=== PATIENT | female | born 1975 | race Hispanic/Latino ===

== ENCOUNTER 2018-02-01 09:19 | Inpatient (IN) | payer MEDICAID ==
[2018-02-01 09:19] VITALS: BMI 17.5
--- NOTE | 2018-02-01 10:01 | C.PDOC ---
History Of Present Illness <JarodEvelyne L - Last Filed: 02/01/18 14:00> <Marv Lazcano - Last Filed: 02/03/18 14:16> 42 y/o female presents to ED requesting detox from heroin. Patient reports last used was last night and currently denies ETOH use, signs of withdrawal, SI/HI or any other complaints at this time. (Evelyne Salazar) History Per: Patient History/Exam Limitations: no limitations Onset/Duration Of Symptoms: Days Current Symptoms Are (Timing): Still Present Suicide/Self Injury Attempted (Context): None <MartinJarodEvelnye L - Last Filed: 02/01/18 14:00> <Marv Lazcano - Last Filed: 02/03/18 14:16> Time Seen by Provider: 02/01/18 09:37 Chief Complaint (Nursing): Substance Abuse Past Medical History Reviewed: Historical Data, Nursing Documentation, Vital Signs - Medical History PMH: Anxiety, Depression Surgical History: No Surg Hx Family History: States: No Known Family Hx - Social History Hx Alcohol Use: No Hx Substance Use: Yes - Immunization History Hx Tetanus Toxoid Vaccination: No Hx Influenza Vaccination: No Hx Pneumococcal Vaccination: No <JarodEvelyne L - Last Filed: 02/01/18 14:00> Vital Signs: Last Vital Signs Temp 98.1 F 02/03/18 13:28 Pulse 60 02/03/18 13:28 Resp 18 02/03/18 13:28 BP 107/67 02/03/18 13:28 Pulse Ox 99 02/03/18 13:28 - [facility] Procedures INJECT/INFUSE NEC (05/08/14) Review Of Systems Constitutional: Negative for: Fever, Chills Cardiovascular: Negative for: Chest Pain Respiratory: Negative for: Shortness of Breath Gastrointestinal: Negative for: Nausea, Vomiting Skin: Negative for: Rash <MartinJarodEvelyne L - Last Filed: 02/01/18 14:00> Physical Exam - Physical Exam Appears: Non-toxic, No Acute Distress Skin: Warm, Dry, No Rash Head: Atraumatic, Normacephalic Eye(s): bilateral: PERRL, EOMI Oral Mucosa: Moist Neck: Normal ROM, Supple Cardiovascular: Rhythm Regular Respiratory: No Rales, No Rhonchi, No Wheezing Gastrointestinal/Abdominal: Soft, No Tenderness, No Guarding, No Rebound Neurological/Psych: Oriented x3, Normal Speech, Normal Cognition, Other (No tremors) <MartinJarodEvelyne L - Last Filed: 02/01/18 14:00> ED Course And Treatment - Laboratory Results Result Diagrams: 02/01/18 10:24 02/01/18 10:24 O2 Sat by Pulse Oximetry: 98 (RA) Pulse Ox Interpretation: Normal <JarodEvelyne L - Last Filed: 02/01/18 14:00> - Laboratory Results Result Diagrams: 02/01/18 10:24 02/01/18 10:24 <Marv Lazcano - Last Filed: 02/03/18 14:16> Medical Decision Making <MartinEvelyne L - Last Filed: 02/01/18 14:00> <Marv Lazcano - Last Filed: 02/03/18 14:16> Medical Decision Making: Patient requesting detox from heroin. Labs ordered for medical clearance Labs reviewed with no acute findings. In my clinical judgment patient is medically cleared and stable for admission. PES contacted for evaluation. As per KASSANDRA Falcon patient is to be admitted under Dr Witt service for detox (Evelyne Salazar) Disposition - Disposition Disposition Time: 10:53 - POA Present On Arrival: None <Evelyne Salazar - Last Filed: 02/01/18 14:00> <Marv Lazcano - Last Filed: 02/03/18 14:16> - Disposition Disposition: HOSPITALIZED Condition: GOOD - Clinical Impression Clinical Impression: Heroin use disorder, severe - PA / CORPORATE COUNSEL / Resident Statement / has reviewed & agrees with the documentation as recorded. - Scribe Statement The provider has reviewed the documentation as recorded by the Scribe <Evelyne Salazar - Last Filed: 02/01/18 14:00> - PA / CORPORATE COUNSEL / Resident Statement / has reviewed & agrees with the documentation as recorded. <Marv Lazcano - Last Filed: 02/03/18 14:16> - Scribe Statement Caio Falk All medical record entries made by the Scribe were at my direction and personally dictated by me. I have reviewed the chart and agree that the record accurately reflects my personal performance of the history, physical exam, medical decision making, and the department course for this patient. I have also personally directed, reviewed, and agree with the discharge instructions and disposition. (Evelyne Salazar) Decision To Admit - Pt Status Changed To: Hospital Disposition Of: Inpatient - Admit Certification Admit to Inpatient:: After my assessment, the patient will require hospitalization for at least two midnights. This is because of the severity of symptoms shown, intensity of services needed, and/or the medical risk in this patient being treated as an outpatient. - InPatient: Physician Admission Certification: I certify that this patient requires 2 or more midnights of care for the following reason:: patient needs inpatient detox for heroin use - . Bed Request Type: Detox Admitting Physician: Halley Witt <Evelyne Salazar - Last Filed: 02/01/18 14:00> <Marv Lazcano - Last Filed: 02/03/18 14:16> - . Patient Diagnosis: Heroin use disorder, severe
[2018-02-01 10:28] LABS: BASO % 0.9 % (0.0-2.0); EOS # 0.1 K/uL (0.0-0.7); HEMOGLOBIN 13.2 g/dL (11.0-16.0); LYMPH # 0.7 K/uL (1.0-4.3); LYMPH % 18.2 % (20.0-40.0); MEAN CELL VOLUME 92.8 fL (81.0-99.0); MEAN CORPUSCULAR HGB CONC 34.4 g/dL (33.0-37.0); MEAN PLATELET VOLUME 8.7 fL (7.2-11.7); MONO # 0.3 K/uL (0.0-0.8); MONO % 8.7 % (0.0-10.0); NEUT # 2.6 K/uL (1.8-7.0); NEUT % 70.2 % (50.0-75.0); NRBC % 0.1 % (0.0-2.0); RBC 4.13 Mil/uL (3.80-5.20); RED CELL DISTRIBUTION WIDTH 13.6 % (11.5-14.5); WHITE BLOOD COUNT 3.8 K/uL (4.8-10.8)
[2018-02-01 10:42] LABS: HCG,QUALITATIVE URINE NEGATIVE (NEGATIVE)
[2018-02-01 10:47] LABS: SQUAMOUS EPITHIAL 3 /hpf (0-5); URINE BACTERIA RARE (<OCC); URINE BILIRUBIN NEGATIVE (NEGATIVE); URINE BLOOD NEGATIVE (NEGATIVE); URINE CLARITY Clear (Clear); URINE COLOR Yellow (YELLOW); URINE GLUCOSE (UA) NORMAL (Normal); URINE LEUKOCYTE ESTERASE TRACE Leu/uL (Negative); URINE PROTEIN NEGATIVE (NEGATIVE); URINE UROBILINOGEN NORMAL mg/dL (0.2-1.0)
[2018-02-01 10:49] LABS: ALB/GLOB RATIO 1.1 (1.0-2.1); ALBUMIN 3.6 g/dL (3.5-5.0); ALT/SGPT 26 U/L (9-52); AST/SGOT 24 U/L (14-36); BLOOD UREA NITROGEN 8 mg/dL (7-17); CALCIUM 8.8 mg/dl (8.6-10.4); GFR AFRICAN-AMERICAN > 60; GFR NON-AFRICAN AMERICAN > 60
[2018-02-01 11:34] LABS: BARBITURATES, UR NEGATIVE (NEGATIVE); PHENCYCLIDINE, UR NEGATIVE (NEGATIVE)
[2018-02-01 11:36] LABS: BENZODIAZEPINES, UR POSITIVE (NEGATIVE); OPIATES, UR POSITIVE (NEGATIVE)
--- NOTE | 2018-02-01 12:09 | PCM.BM ---
<Mariana Amaro - Last Filed: 02/01/18 12:07> Treatment Plan Problems - Problems identified on initial assessmt Potential for opioid withdrawal Date Initiated: 02/01/18 Assessment reference: NA Status: Active Potential for benzodiazepine withdrawal Date Initiated: 02/01/18 Assessment reference: NA Status: Active Treatment assets and liabiliti Patient Assests: cooperative, educated, self-reliant, ADL independent Patient Liabilities: financial problems, poor support system, relationship conflicts, substance abuse - Milieu Protocol Maintain good personal hygiene: every shift Encourage regular showers, every shift Remind patient to perform daily oral care, every shift Assist patient to perform ADL's Maintain personal safety: every shift Educate patient to report safety concerns to staff, every shift Monitor environment for contraband/sharps Medication safety: Monitor for expected outcome, potential side effects: every shift, Assess barriers to learning: every shift, Assess readiness for medication education: every shift <Halley Witt - Last Filed: 02/03/18 08:52> - Diagnosis (1) Opioid use disorder, severe, dependence Status: Acute Interventions: 02/03/18 08:52 * Assess 7x/week regarding severity of withdrawal * Educate regarding risks, benefits, side effects and alternatives of medications * Use Motivational Interviewing for abstinence * Use CBT for relapse prevention * Medication management for withdrawal symptoms * Encourage medication assisted treatment *
--- NOTE | 2018-02-01 13:00 | PCM.PSYCH ---
Initial Psychiatric Evaluation - Initial Psychiatric Evaluation Type of Admission: Voluntary Legal Status: Capacity Chief Complaint (in patient's own words): "I need detox" History of Present Illness and Precipitating Events: The patient is seen, chart reviewed and case discussed. This is a 42-year-old female, homeless and unemployed, she is but for 5 years, however she was living with her ex- up until last weekend when he left for [facility]. The patient is also from [facility] and came here 15 years ago. She doesn't have a child. The patient is here for heroin detox; using 20 bags intranasally for the past 10 years. She had one detox in the past but never been to rehabilitation or or used MAT. She is also using crack cocaine the last 2 or 3 weeks but denies alcohol, cannabis and all other drugs. She is positive for benzos but she denies using, however she was given Xanax for anxiety but she says she stopped a month ago. She says she couldn't stop on her own and kept on relapsing. Past psych history: Depression and anxiety. No admissions and no suicide attempts Medical history: Denies. She takes insulin for tooth abscess Family psych history: Uncle had substance use and committed suicide when patient was a child Current Medications: Active Medications Generic Name Dose Route Start Last Admin Trade Name Freq PRN Reason Stop Dose Admin Amoxicillin/Clavulanate Potassium 1 tab 02/01/18 19:00 Augmentin 500 Mg-125 Mg Tab PO 02/06/18 19:01 Q12H CONCEPCION Protocol Clonidine HCl 0.1 mg 02/01/18 12:50 Catapres PO Q8 PRN COWS Score More or Equal to 5 Escitalopram Oxalate 5 mg 02/01/18 13:00 Lexapro PO DAILY CONCEPCION Gabapentin 100 mg 02/01/18 14:00 Neurontin PO TID CONCEPCION Hydroxyzine HCl 25 mg 02/01/18 12:53 Atarax PO Q4H PRN Anxiety Ibuprofen 600 mg 02/01/18 12:53 Motrin Tab PO Q6H PRN Pain, moderate (4-7) Loperamide HCl 2 mg 02/01/18 12:50 Imodium PO Q8 PRN Diarrhea Methadone HCl 25 mg 02/02/18 13:00 Methadone PO 02/02/18 13:01 ONCE ONE Ondansetron HCl 4 mg 02/01/18 12:50 Zofran Tab PO Q8 PRN Nausea/Vomiting Past Psychiatric History - Past Psychiatric History Previous Treatment History: None Pertinent Medical Hx (Current Medical&Sleep Prob, Allergies): Allergies Allergy/AdvReac Type Severity Reaction Status Date / Time No Known Allergies Allergy Verified 02/01/18 09:25 Ibuprofen [Motrin] 600 mg PO Q6 02/01/18 Penicillin VK [Penicillin VK Tab] 500 mg PO TID 02/01/18 Review of Systems - Neurological Neurological: UNREMARKABLE - Psychiatric Psychiatric: Abnormal Sleep Pattern, Anhedonia, Anxiety, Change in Appetite, Depression, Difficulty Concentrating. absent: Hallucinations, Homicidal Ideation, Hopelessness, Paranoia, Suicidal Ideation Mental Status Examination - Personal Presentation Personal Presentation: Looks stated age - Affect Affect: Broad - Motor Activity Motor Activity: Calm - Reliability in Providing Information Reliability in Providing Information: Good - Speech Speech: Organized - Mood Mood: Depressed, Anxious - Formal Thought Process Formal Thought Process: No Impairment - Cognitive Functions Orientation: Person, Place, Situation, Time Sensorium: Alert Attention/Concentration: Attentive Estimate of Intelligence: Average Judgement: Intact, as evidence by: Insight regarding need for hospitalization Memory: Recent intact, as evidence by: Ability to recall events of the day, Remote intact, as evidenced by: Abilit to recall sig. life events - Risk Risk: Withdrawal, Diminished functioning - Strength & Assets Inventory Strength & Assets Inventory: Cooperative - Limitations Limitations: Living alone DSM 5 DX - DSM 5 DSM 5 Diagnosis: Opioid withdrawal Opioid use disorder, severe Cocaine use disorder, severe Major depressive disorder, moderate Generalized anxiety disorder - Recommended/Plan of Treatment Treatment Recommendations and Plan of Treatment: Taper with methadone Gabapentin for augmentation Lexapro for REZA and depression CBT and supportive therapy for REZA and depression As needed medications All risks, benefits and alternatives of the meds discussed, and the pt agreed and understood. Attend groups and activities Supportive therapy and psychoeducation for substance use [place] for abstinence CBT for relapse prevention Encourage MAT Refer to rehab or IOP, and self-help groups 34 min Projected ELOS: 5-6 days Prognosis: Good with treated - Smoking Cessation Smoking Cessation Initiated: No Reason for not providing: Nonsmoker
[2018-02-01] MEDS: Amoxicillin-Clav 500-125 mg Tab PO SCH (19:12)
[2018-02-02] MEDS: Amoxicillin-Clav 500-125 mg Tab PO SCH ×2 (08:27→19:09)
--- NOTE | 2018-02-02 16:48 | PCM.PYCHPN ---
Psychiatric Progress Note - Psychiatric Progress Note Patient seen today, length of contact: 16 min Patient Chief Complaint: "I'm not well" Problems Identified/Issues Discussed: The pt is seen, chart reviewed, case discussed with staff. The pt is compliant with medications and reports no side-effects. Symptoms are improving but needs more time to stabilize. After care discussed, support and psychoeducation given. Medication Change: Yes (detox changes daily) Medical Record Reviewed: Yes Mental Status Examination - Cognitive Function Orientation: Person, Place, Situation, Time Memory: Intact Attention: Poor Concentration: Poor Association: WNL Fund of Knowledge: WNL - Mood Mood: Depressed, Anxious - Affect Affect: Broad - Speech Speech: Appropriate - Formal Thought Process Formal Thought Process: No Impairment - Suicidal Ideation Suicidal Ideation: No - Homicidal Ideation Homicidal Ideation: No Goal/Treatment Plan - Goal/Treatment Plan Need for Continued Stay: Discharge may exacerbated symptoms, Severe functional impairment Progress Toward Problem(s) and Goals/Treatment Plan: Taper with methadone Gabapentin for augmentation Lexapro for REZA and depression CBT and supportive therapy for REZA and depression As needed medications All risks, benefits and alternatives of the meds discussed, and the pt agreed and understood. Attend groups and activities Supportive therapy and psychoeducation for substance use [place] for abstinence CBT for relapse prevention Encourage MAT Refer to rehab or IOP, and self-help groups Estimated Date of D/C: 02/07/18
[2018-02-03] MEDS: Amoxicillin-Clav 500-125 mg Tab PO SCH ×2 (08:05→18:10)
--- NOTE | 2018-02-03 12:03 | PCM.PYCHPN ---
Psychiatric Progress Note - Psychiatric Progress Note Patient seen today, length of contact: 17 min Patient Chief Complaint: "I regret starting methadone" Problems Identified/Issues Discussed: The pt is seen, chart reviewed, case discussed with staff. Support and psychoeducation given, CBT and [place] used briefly No new symptoms reported, improving slowly and needs more time She thinks subutex would have helped ore bc she is "still withdrawing" and it shows, she is somewhat sick Detox is extended No SEs from medications, risks discussed. After care discussed - rehab after detox Medication Change: Yes (detox changes daily) Medical Record Reviewed: Yes Mental Status Examination - Cognitive Function Orientation: Person, Place, Situation, Time Memory: Intact Attention: Poor Concentration: Poor Association: WNL Fund of Knowledge: WNL - Mood Mood: Depressed, Anxious - Affect Affect: Broad - Speech Speech: Appropriate - Formal Thought Process Formal Thought Process: No Impairment - Suicidal Ideation Suicidal Ideation: No - Homicidal Ideation Homicidal Ideation: No Goal/Treatment Plan - Goal/Treatment Plan Need for Continued Stay: Discharge may exacerbated symptoms, Severe functional impairment Progress Toward Problem(s) and Goals/Treatment Plan: Taper with methadone Gabapentin for augmentation Lexapro for REZA and depression, dose increased CBT and supportive therapy for REZA and depression As needed medications All risks, benefits and alternatives of the meds discussed, and the pt agreed and understood. Attend groups and activities Supportive therapy and psychoeducation for substance use [place] for abstinence CBT for relapse prevention Encourage MAT Refer to rehab or IOP, and self-help groups Estimated Date of D/C: 02/07/18
[2018-02-04] MEDS: Amoxicillin-Clav 500-125 mg Tab PO SCH ×2 (07:19→18:06)
--- NOTE | 2018-02-04 10:49 | RAD ---
HISTORY: Substance abuse. Rehab clearance. COMPARISON: No prior. TECHNIQUE: Chest PA and lateral FINDINGS: LUNGS: No active pulmonary disease. PLEURA: No significant pleural effusion identified. No pneumothorax apparent. CARDIOVASCULAR: Normal. OSSEOUS STRUCTURES: No significant abnormalities. VISUALIZED UPPER ABDOMEN: Normal. OTHER FINDINGS: None. IMPRESSION: No active disease.
--- NOTE | 2018-02-04 13:47 | PCM.PYCHPN ---
Psychiatric Progress Note - Psychiatric Progress Note Patient seen today, length of contact: 16 min Patient Chief Complaint: "I couldn't sleep" Problems Identified/Issues Discussed: The pt is seen, chart reviewed, case discussed with staff. The pt is compliant with medications and reports no side-effects. Symptoms are improving but needs more time to stabilize. After care discussed, support and psychoeducation given. Seroquel added for insomnia Medication Change: Yes (detox changes daily) Medical Record Reviewed: Yes Mental Status Examination - Cognitive Function Orientation: Person, Place, Situation, Time Memory: Intact Attention: Poor Concentration: Poor Association: WNL Fund of Knowledge: WNL - Mood Mood: Depressed, Anxious - Affect Affect: Broad - Speech Speech: Appropriate - Formal Thought Process Formal Thought Process: No Impairment - Suicidal Ideation Suicidal Ideation: No - Homicidal Ideation Homicidal Ideation: No Goal/Treatment Plan - Goal/Treatment Plan Need for Continued Stay: Discharge may exacerbated symptoms, Severe functional impairment Progress Toward Problem(s) and Goals/Treatment Plan: Taper with methadone Gabapentin for augmentation Lexapro for REZA and depression, dose increased CBT and supportive therapy for REZA and depression As needed medications All risks, benefits and alternatives of the meds discussed, and the pt agreed and understood. Attend groups and activities Supportive therapy and psychoeducation for substance use [place] for abstinence CBT for relapse prevention Encourage MAT Refer to rehab or IOP, and self-help groups Estimated Date of D/C: 02/07/18
[2018-02-05] MEDS: Amoxicillin-Clav 500-125 mg Tab PO SCH ×2 (06:44→19:00)
--- NOTE | 2018-02-05 10:48 | PCM.PYCHPN ---
Psychiatric Progress Note - Psychiatric Progress Note Patient seen today, length of contact: 16 min Patient Chief Complaint: "I have withdrawal symptoms" Problems Identified/Issues Discussed: The pt is seen, chart reviewed, case discussed with staff. The pt is compliant with medications and reports no side-effects. Symptoms are improving but needs more time to stabilize. After care discussed, support and psychoeducation given. DSM 5 Symptoms Update: Opioid dependence, severe, Opioid withdrawal symptoms Medication Change: Yes (detox changes daily) Medical Record Reviewed: Yes Mental Status Examination - Cognitive Function Orientation: Person, Place, Situation, Time Memory: Intact Attention: Poor Concentration: Poor Association: WNL Fund of Knowledge: WN Decription of patient's judgement and insights: fair/fair - Mood Mood: Depressed, Anxious - Affect Affect: Broad - Speech Speech: Appropriate - Formal Thought Process Formal Thought Process: No Impairment Psychotic Thoughts and Behaviors: denied - Suicidal Ideation Suicidal Ideation: No Plan: denied - Homicidal Ideation Homicidal Ideation: No Plan: denied Goal/Treatment Plan - Goal/Treatment Plan Need for Continued Stay: Discharge may exacerbated symptoms, Severe functional impairment Progress Toward Problem(s) and Goals/Treatment Plan: Continue current management and medications. Patient educated about risks, benefits, side effects & alternatives of meds. Pt verbalized understanding & agreed with the above. Therapy in milieu. Estimated Date of D/C: 02/07/18
[2018-02-06] MEDS: Amoxicillin-Clav 500-125 mg Tab PO SCH ×2 (06:38→19:00)
--- NOTE | 2018-02-06 10:46 | PCM.PYCHPN ---
Psychiatric Progress Note - Psychiatric Progress Note Patient seen today, length of contact: 16 min Patient Chief Complaint: "I'm feeling better" Problems Identified/Issues Discussed: The pt is seen, chart reviewed, case discussed with staff. The pt reported that in the morning she has had withdrawal symptoms but which subsided after taking medication. The pt is compliant with medications and reports no side-effects. Symptoms are improving but needs more time to stabilize. After care discussed, support and psychoeducation given. DSM 5 Symptoms Update: Opioid dependence, severe, withdrawal symptoms. Medication Change: Yes (detox changes daily) Medical Record Reviewed: Yes Mental Status Examination - Cognitive Function Orientation: Person, Place, Situation, Time Memory: Intact Attention: WNL Concentration: WNL Association: WN Fund of Knowledge: [facility] Decription of patient's judgement and insights: fair/good - Mood Mood: Anxious - Affect Affect: Constricted - Speech Speech: Appropriate - Formal Thought Process Formal Thought Process: No Impairment Psychotic Thoughts and Behaviors: denied - Suicidal Ideation Suicidal Ideation: No Plan: denied - Homicidal Ideation Homicidal Ideation: No Plan: denied Goal/Treatment Plan - Goal/Treatment Plan Need for Continued Stay: Discharge may exacerbated symptoms, Severe functional impairment Progress Toward Problem(s) and Goals/Treatment Plan: Continue current management and medications. Patient educated about risks, benefits, side effects & alternatives of meds. Pt verbalized understanding & agreed with the above. Therapy in milieu. Estimated Date of D/C: 02/07/18 - Smoking Cessation Smoking Cessation Initiated: Yes
[2018-02-07 06:30] VITALS: O2SAT 98
[2018-02-07 08:26] VITALS: BP 103/74; PULSE 86; RESP 18; TEMP 98.2
--- NOTE | 2018-02-07 08:38 | PCM.PYCHDC ---
Mental Status Examination - Mental Status Examination Orientation: Person, Place, Situation, Time Memory: Intact Mood: Anxious Affect: Constricted Speech: Appropriate Attention: WNL Concentration: WNL Association: WNL Fund of Knowledge: WNL Formal Thought Process: No Impairment Suicidal Ideation: No Current Homicidal Ideation?: No Discharge Summary - Discharge Note Reason for Hospitalization: opioid detox Consultations:: List each consultation separately and include: 1. Reason for request. 2. Findings. 3. Follow-up Summary of Hospital Course include:: 1. Description of specific treatment plan utilized for patients during their course of treatmen. 2. Summarize the time- course for resolution of acute symptoms and/or regressed behaviors. 3. Describe issues identified and worked on during hospitalization. 4. Describe medication utilized. 5. Describe medical problems identified and treated. 6. Reassessment of suicide risk Summary of Hospital Course: The patient is seen, chart reviewed and case discussed. On admission: This is a 42-year-old female, homeless and unemployed, she is but for 5 years, however she was living with her ex- up until last weekend when he left for [facility]. The patient is also from [facility] and came here 15 years ago. She doesn't have a child. The patient is here for heroin detox; using 20 bags intranasally for the past 10 years. She had one detox in the past but never been to rehabilitation or or used MAT. She is also using crack cocaine the last 2 or 3 weeks but denies alcohol, cannabis and all other drugs. She is positive for benzos but she denies using, however she was given Xanax for anxiety but she says she stopped a month ago. She says she couldn't stop on her own and kept on relapsing. Past psych history: Depression and anxiety. No admissions and no suicide attempts Medical history: Denies. She takes insulin for tooth abscess Family psych history: Uncle had substance use and committed suicide when patient was a child Hospital course: The pt was admitted and started on treatment with psychotherapy, support, psychoeducation and medications. RI and CBT used. The pt attended groups and activities, as well as milieu therapy. All the risks and benefits of medications are discussed and the patient understood and agreed. The pt improved with the treatments provided. After care discussed with the patient. She will go to [facility] in [place]. - Final Diagnosis (DSM 5) Condition upon Discharge: GOOD DSM 5: Opioid withdrawal Opioid use disorder, severe Cocaine use disorder, severe Major depressive disorder, moderate Generalized anxiety disorder Disposition: REHAB FACILITY/REHAB UNIT Follow-up Treatment Plan: Continue below medications after discharge. Follow after care plan as discussed. Use relapse prevention skills Return to ER or call 911 if suicidal, homicidal or symptoms relapse. Stay away from stress, alcohol and drugs. See primary doctor regularly and get labs. Prescriptions/Medication Reconciliation: Escitalopram [Lexapro] 10 mg PO DAILY #30 tab QUEtiapine [Seroquel] 100 mg PO HS #30 tab - Smoking Cessation Smoking Cessation Medication prescribed: No - Antipsychotic Medications Pt discharged on 2 or more routine antipsychotic medications: No
== END 2018-02-07 09:25 | disposition home or self-care (01) | DRG 745 ==
LOC: C.ER 09:19 → C.9E 10:53 → C.7D 11:56
PROVIDERS: ADMIT Psychiatry & Neurology Psychiatry; ATTEND Psychiatry & Neurology Psychiatry
PROC: HZ2ZZZZ Detoxification Services for Substance Abuse Treatment (ICD-10-PCS; principal; 2018-02-01)
PROC: HZ52ZZZ Individual Psychotherapy for Substance Abuse Treatment, Cognitive-Behavioral (ICD-10-PCS; 2018-02-01)
PROC: HZ59ZZZ Individual Psychotherapy for Substance Abuse Treatment, Supportive (ICD-10-PCS; 2018-02-01)
PROC: HZ56ZZZ Individual Psychotherapy for Substance Abuse Treatment, Psychoeducation (ICD-10-PCS; 2018-02-01)
PROC: HZ42ZZZ Group Counseling for Substance Abuse Treatment, Cognitive-Behavioral (ICD-10-PCS; 2018-02-01)
PROC: HZ46ZZZ Group Counseling for Substance Abuse Treatment, Psychoeducation (ICD-10-PCS; 2018-02-01)
PROC: GZHZZZZ Group Psychotherapy (ICD-10-PCS; 2018-02-01)
PROC: GZ58ZZZ Individual Psychotherapy, Cognitive-Behavioral (ICD-10-PCS; 2018-02-01)
PROC: GZ56ZZZ Individual Psychotherapy, Supportive (ICD-10-PCS; 2018-02-01)
DX: F11.23 Opioid dependence with withdrawal (principal); F14.20 Cocaine dependence, uncomplicated; F32.1 Major depressive disorder, single episode, moderate; G47.00 Insomnia, unspecified; F41.1 Generalized anxiety disorder; Z59.0 Homelessness

== ENCOUNTER 2018-03-01 04:41 | Emergency (ER) | payer MEDICAID ==
[2018-03-01 04:42] VITALS: BMI 17.5
[2018-03-01 05:12] VITALS: TEMP 97.4
[2018-03-01] MEDS ORDERED: Sodium Chloride 0.9% 1,000 ML IV ONE (05:26)
[2018-03-01 05:28] VITALS: BP 114/71; PULSE 93; O2SAT 98
--- NOTE | 2018-03-01 05:50 | C.PDOC ---
History Of Present Illness 42 y/o female presents to ED for complaints of dizziness and not feeling well. Patient states she feels like she is having a withdrawal. Patient was seen earlier in [place] and discharged. Patient also reports drug use in the past. Denies any other physical complaints. Chief Complaint (Nursing): Medical Clearance History Per: Patient History/Exam Limitations: no limitations Onset/Duration Of Symptoms: Hrs Current Symptoms Are (Timing): Still Present Recent travel outside of the [place]: No Past Medical History Reviewed: Historical Data, Nursing Documentation, Vital Signs Vital Signs: Last Vital Signs Temp 97.4 F L 03/01/18 05:07 Pulse 93 H 03/01/18 05:27 Resp 18 03/01/18 06:00 BP 114/71 03/01/18 05:27 Pulse Ox 98 03/01/18 05:58 - Medical History PMH: Anxiety, Depression - [facility] Procedures DETOXIFICATION SERVICES FOR SUBSTANCE ABUSE TREATMENT (02/01/18) GROUP SURGICAL SERVICES ASST FOR SUBSTANCE ABUSE TREATMENT, PSYCHOEDUCATION (02/01/18) GROUP SURGICAL SERVICES ASST FOR SUBSTANCE ABUSE, COGNITIVE BEHAVIORAL (02/01/18) GROUP PSYCHOTHERAPY (02/01/18) INDIV PSYCHOTHERAPY FOR SUBSTANCE ABUSE TREATMENT, SUPPORT (02/01/18) INDIV PSYCHOTHERAPY FOR SUBSTANCE ABUSE, COGNITIV BEHAVIORAL (02/01/18) INDIV PSYCHOTHERAPY FOR SUBSTANCE ABUSE, PSYCHOEDUCATION (02/01/18) INDIVIDUAL PSYCHOTHERAPY, COGNITIVE-BEHAVIORAL (02/01/18) INDIVIDUAL PSYCHOTHERAPY, SUPPORTIVE (02/01/18) INJECT/INFUSE NEC (05/08/14) Family History: States: Diabetes - Social History Hx Alcohol Use: No Hx Substance Use: Yes - Immunization History Hx Tetanus Toxoid Vaccination: No Hx Influenza Vaccination: No Hx Pneumococcal Vaccination: No Review Of Systems Constitutional: Positive for: Other (Not feeling well). Negative for: Fever, Chills Cardiovascular: Negative for: Chest Pain Gastrointestinal: Negative for: Nausea, Vomiting, Abdominal Pain, Diarrhea Skin: Negative for: Rash Neurological: Positive for: Dizziness. Negative for: Weakness, Numbness Physical Exam - Physical Exam Appears: Well, Non-toxic, No Acute Distress Skin: Normal Color, Warm, Dry Head: Atraumatic, Normacephalic Eye(s): bilateral: Normal Inspection, PERRL, EOMI Nose: Normal, No Discharge Oral Mucosa: Moist Neck: Supple Chest: Symmetrical, No Tenderness Cardiovascular: Rhythm Regular, No Murmur Respiratory: Normal Breath Sounds, No Decreased Breath Sounds, No Rales, No Rhonchi, No Wheezing Gastrointestinal/Abdominal: Soft, No Tenderness Extremity: Normal ROM, No Deformity Extremity: Bilateral: Atraumatic, Normal Color And Temperature, Normal ROM Neurological/Psych: Oriented x3 (Awake and alert), Normal Speech (Speaking in full sentences ), Other (No focal deficits ) Gait: Steady ED Course And Treatment - Laboratory Results Result Diagrams: 03/01/18 05:57 03/01/18 05:57 O2 Sat by Pulse Oximetry: 98 (RA) Pulse Ox Interpretation: Normal Medical Decision Making Medical Decision Making: Administered IV fluids. Ordered blood work and urinalysis. Patient was told there are no detox beds available and she got upset and eloped. Disposition Counseled Patient/Family Regarding: Diagnosis - Disposition Referrals: [facility] [Outside] Disposition: HOME/ ROUTINE Disposition Time: 05:54 Condition: STABLE Instructions: Opioid Use Disorder Forms: [employer] (Sierra Leonean) - POA Present On Arrival: None - Clinical Impression Clinical Impression: Opioid use disorder - Scribe Statement The provider has reviewed the documentation as recorded by the Scribe Soledad Linares All medical record entries made by the Scribe were at my direction and personally dictated by me. I have reviewed the chart and agree that the record accurately reflects my personal performance of the history, physical exam, medical decision making, and the department course for this patient. I have also personally directed, reviewed, and agree with the discharge instructions and disposition.
[2018-03-01 06:00] LABS: BASO # 0.1 K/uL (0.0-0.2); BASO % 0.8 % (0.0-2.0); EOS # 0.2 K/uL (0.0-0.7); EOS % 2.1 % (0.0-4.0); HEMOGLOBIN 12.4 g/dL (11.0-16.0); LYMPH # 2.8 K/uL (1.0-4.3); LYMPH % 38.9 % (20.0-40.0); MEAN CELL VOLUME 91.6 fL (81.0-99.0); MEAN CORPUSCULAR HEMOGLOBIN 31.8 pg (27.0-31.0); MEAN CORPUSCULAR HGB CONC 34.8 g/dL (33.0-37.0); MEAN PLATELET VOLUME 9.5 fL (7.2-11.7); MONO # 0.5 K/uL (0.0-0.8); NEUT # 3.6 K/uL (1.8-7.0); NEUT % 51.2 % (50.0-75.0); RBC 3.89 Mil/uL (3.80-5.20); WHITE BLOOD COUNT 7.1 K/uL (4.8-10.8)
[2018-03-01 06:07] LABS: SQUAMOUS EPITHIAL 1 /hpf (0-5); URINE BACTERIA RARE (<OCC); URINE BILIRUBIN NEGATIVE (NEGATIVE); URINE BLOOD NEGATIVE (NEGATIVE); URINE CLARITY Clear (Clear); URINE COLOR Colorless (YELLOW); URINE GLUCOSE (UA) NORMAL (Normal); URINE LEUKOCYTE ESTERASE NEG Leu/uL (Negative); URINE PROTEIN NEGATIVE (NEGATIVE); URINE UROBILINOGEN NORMAL mg/dL (0.2-1.0)
[2018-03-01 06:17] VITALS: RESP 18
[2018-03-01 06:21] LABS: BARBITURATES, UR NEGATIVE (NEGATIVE); BENZODIAZEPINES, UR NEGATIVE (NEGATIVE); OPIATES, UR NEGATIVE (NEGATIVE); PHENCYCLIDINE, UR NEGATIVE (NEGATIVE)
[2018-03-01 06:36] LABS: ALB/GLOB RATIO 1.3 (1.0-2.1); ALT/SGPT 34 U/L (9-52); AST/SGOT 38 U/L (14-36); BLOOD UREA NITROGEN 11 mg/dL (7-17); CALCIUM 8.8 mg/dl (8.6-10.4); GFR AFRICAN-AMERICAN > 60; GFR NON-AFRICAN AMERICAN > 60
== END 2018-03-01 07:03 | disposition home or self-care (01) ==
LOC: C.ER 04:41
DX: F11.90 Opioid use, unspecified, uncomplicated (principal)

== ENCOUNTER 2018-03-04 20:54 | Emergency (ER) | payer MEDICAID ==
[2018-03-04 20:54] VITALS: BMI 17.5
[2018-03-04 21:07] VITALS: RESP 16
[2018-03-04] MEDS ORDERED: Neomycin/Polymyxin/Hydrocort Otic Soln BOTTLE AU STA (21:47)
[2018-03-04] MEDS ORDERED: Amoxicillin-Clav 875-125 mg Tab PO STA (21:48)
--- NOTE | 2018-03-04 22:04 | C.PDOC ---
History Of Present Illness The patient reports pain to the left ear over the past 3 days. The patient reports that the right ear has started having pain as well today. Denies fever, trauma, hearing loss. Time Seen by Provider: 03/04/18 21:25 Chief Complaint (Nursing): ENT Problem History Per: Patient History/Exam Limitations: None Onset/Duration Of Symptoms: Persistent Current Symptoms Are (Timing): Still Present Quality (Ear): Pain W/Touch Symptoms Have Been: Continuous Pain Scale Rating Of: 6 Anticoagulant/Antiplatlet Use?: No Past Medical History Reviewed: Historical Data, Nursing Documentation, Vital Signs Vital Signs: Last Vital Signs Temp 98 F 03/04/18 21:05 Pulse 70 03/04/18 21:05 Resp 16 03/04/18 21:05 BP 99/68 L 03/04/18 21:05 Pulse Ox 99 03/04/18 22:22 - Medical History PMH: Anxiety, Depression Denies: HIV, HTN, End Stage Renal Disease, Chronic Kidney Disease, Seizures, Sexually Transmitted Disease - [facility] Procedures DETOXIFICATION SERVICES FOR SUBSTANCE ABUSE TREATMENT (02/01/18) GROUP MECHANISM ASSEMBLER FOR SUBSTANCE ABUSE TREATMENT, PSYCHOEDUCATION (02/01/18) GROUP MECHANISM ASSEMBLER FOR SUBSTANCE ABUSE, COGNITIVE BEHAVIORAL (02/01/18) GROUP PSYCHOTHERAPY (02/01/18) INDIV PSYCHOTHERAPY FOR SUBSTANCE ABUSE TREATMENT, SUPPORT (02/01/18) INDIV PSYCHOTHERAPY FOR SUBSTANCE ABUSE, COGNITIV BEHAVIORAL (02/01/18) INDIV PSYCHOTHERAPY FOR SUBSTANCE ABUSE, PSYCHOEDUCATION (02/01/18) INDIVIDUAL PSYCHOTHERAPY, COGNITIVE-BEHAVIORAL (02/01/18) INDIVIDUAL PSYCHOTHERAPY, SUPPORTIVE (02/01/18) INJECT/INFUSE NEC (05/08/14) Family History: States: Diabetes - Social History Hx Alcohol Use: No Hx Substance Use: Yes - Immunization History Hx Tetanus Toxoid Vaccination: No Hx Influenza Vaccination: No Hx Pneumococcal Vaccination: No Review Of Systems Constitutional: Negative for: Fever, Chills Eyes: Negative for: Pain ENT: Positive for: Ear Pain Cardiovascular: Negative for: Chest Pain Respiratory: Negative for: Cough, Shortness of Breath Gastrointestinal: Negative for: Vomiting Neurological: Negative for: Weakness, Numbness Physical Exam - Physical Exam Appears: Non-toxic, No Acute Distress Skin: Normal Color, Warm, No Rash Head: Atraumatic, Normacephalic Eye(s): bilateral: Normal Inspection, PERRL, EOMI Ear(s): Left: TM Erythema, Other ((+) swelling to the external canal with tenderness on pushing of the tragus and pinna. ), Right: Normal (Mild cerumen ) Oral Mucosa: Moist Throat: No Erythema, No Exudate Neck: Normal ROM, Supple Lymphatic: Normal Exam Chest: Symmetrical, No Tenderness Respiratory: Normal Breath Sounds, No Accessory Muscle Use Extremity: Normal ROM, No Swelling Neurological/Psych: Oriented x3, Normal Speech, Normal Cranial Nerves Gait: Steady ED Course And Treatment O2 Sat by Pulse Oximetry: 99 (on RA) Pulse Ox Interpretation: Normal Disposition - Disposition Referrals: Joby Taylor MD [Staff Provider] - Disposition: HOME/ ROUTINE Disposition Time: 22:09 Condition: STABLE Additional Instructions: Follow up with the medical doctor within 1-2 days. Return if worsened, Prescriptions: Amoxicillin/Clavulanate [Augmentin 875 MG-125 MG] 1 tab PO BID #14 tab Ibuprofen [Motrin] 600 mg PO TID #21 tab Neomycin/Polymyxin/Hydrocortis [Cortisporin Otic Susp] 3 drop AU TID #1 bottle Instructions: Outer Ear Infection (DC) Forms: [email or web address] [facility] (Croatian) - Clinical Impression Clinical Impression: Otitis externa
[2018-03-04] MEDS ORDERED: Amoxicillin-Clav 875-125 mg Tab PO ONE (22:05)
[2018-03-04 22:48] VITALS: BP 118/74; PULSE 55; TEMP 98.7; O2SAT 100
== END 2018-03-04 22:48 | disposition home or self-care (01) ==
LOC: C.ER 20:54
DX: H60.92 Unspecified otitis externa, left ear (principal)

== ENCOUNTER 2018-03-06 22:03 | Inpatient (IN) | payer MEDICAID ==
[2018-03-06 22:03] VITALS: BMI 17.5
[2018-03-06 23:06] LABS: BASO # 0.1 K/uL (0.0-0.2); EOS # 0.1 K/uL (0.0-0.7); EOS % 2.5 % (0.0-4.0); HCG,QUALITATIVE URINE NEGATIVE (NEGATIVE); HEMOGLOBIN 12.9 g/dL (11.0-16.0); LYMPH # 2.5 K/uL (1.0-4.3); LYMPH % 41.9 % (20.0-40.0); MEAN CELL VOLUME 91.1 fL (81.0-99.0); MEAN CORPUSCULAR HEMOGLOBIN 31.5 pg (27.0-31.0); MEAN CORPUSCULAR HGB CONC 34.6 g/dL (33.0-37.0); MEAN PLATELET VOLUME 9.5 fL (7.2-11.7); MONO # 0.4 K/uL (0.0-0.8); MONO % 6.8 % (0.0-10.0); NEUT # 2.8 K/uL (1.8-7.0); NEUT % 47.8 % (50.0-75.0); RBC 4.1 Mil/uL (3.80-5.20); RED CELL DISTRIBUTION WIDTH 13.3 % (11.5-14.5); WHITE BLOOD COUNT 5.9 K/uL (4.8-10.8)
[2018-03-06 23:16] LABS: ACETAMINOPHEN < 10.0 ug/mL (10.0-30.0); SALICYLATE < 1.0 mg/dL 1; SQUAMOUS EPITHIAL 9 /hpf (0-5); URINE BACTERIA RARE (<OCC); URINE BILIRUBIN NEGATIVE (NEGATIVE); URINE BLOOD NEGATIVE (NEGATIVE); URINE CLARITY Hazy (Clear); URINE COLOR Straw (YELLOW); URINE GLUCOSE (UA) NORMAL (Normal); URINE LEUKOCYTE ESTERASE 1+ Leu/uL (Negative); URINE PROTEIN NEGATIVE (NEGATIVE); URINE UROBILINOGEN NORMAL mg/dL (0.2-1.0)
[2018-03-06 23:17] LABS: ALB/GLOB RATIO 1.4 (1.0-2.1); ALBUMIN 4.1 g/dL (3.5-5.0); ALT/SGPT 17 U/L (9-52); AST/SGOT 17 U/L (14-36); BLOOD UREA NITROGEN 11 mg/dL (7-17); GFR AFRICAN-AMERICAN > 60; GFR NON-AFRICAN AMERICAN > 60
[2018-03-06 23:21] LABS: BARBITURATES, UR NEGATIVE (NEGATIVE); BENZODIAZEPINES, UR NEGATIVE (NEGATIVE); PHENCYCLIDINE, UR NEGATIVE (NEGATIVE)
[2018-03-06 23:26] LABS: OPIATES, UR POSITIVE (NEGATIVE)
--- NOTE | 2018-03-06 23:52 | C.PDOC ---
History Of Present Illness 42 year old female is brought to the ED for evaluation. Patient is brought in for reported overdose. Patient took 20 pills of her 25 mg seroquel medications approximately 1 hour ago. Patient denies HI, hallucinations, other acute complaints. Time Seen by Provider: 03/06/18 22:29 Chief Complaint (Nursing): Psychiatric Evaluation History Per: Patient, EMS History/Exam Limitations: no limitations Onset/Duration Of Symptoms: Hrs Current Symptoms Are (Timing): Still Present Suicide/Self Injury Attempted (Context): Ingestion Modifying Factor(s): None Associated Symptoms: Depression, Suicidal Thoughts, Suicidal Plan Involuntary Hold By: None Recent travel outside of the [place]: No Additional History Per: Patient Past Medical History Reviewed: Historical Data, Nursing Documentation, Vital Signs Vital Signs: Last Vital Signs Temp 98.7 F 03/07/18 19:06 Pulse 95 H 03/07/18 19:06 Resp 18 03/07/18 19:06 BP 105/73 03/07/18 19:06 Pulse Ox 98 03/07/18 19:06 - Medical History PMH: Anxiety, Depression Denies: HIV, HTN, End Stage Renal Disease, Chronic Kidney Disease, Seizures, Sexually Transmitted Disease Surgical History: No Surg Hx - [facility] Procedures DETOXIFICATION SERVICES FOR SUBSTANCE ABUSE TREATMENT (02/01/18) GROUP MORTGAGE COLLECTOR FOR SUBSTANCE ABUSE TREATMENT, PSYCHOEDUCATION (02/01/18) GROUP MORTGAGE COLLECTOR FOR SUBSTANCE ABUSE, COGNITIVE BEHAVIORAL (02/01/18) GROUP PSYCHOTHERAPY (02/01/18) INDIV PSYCHOTHERAPY FOR SUBSTANCE ABUSE TREATMENT, SUPPORT (02/01/18) INDIV PSYCHOTHERAPY FOR SUBSTANCE ABUSE, COGNITIV BEHAVIORAL (02/01/18) INDIV PSYCHOTHERAPY FOR SUBSTANCE ABUSE, PSYCHOEDUCATION (02/01/18) INDIVIDUAL PSYCHOTHERAPY, COGNITIVE-BEHAVIORAL (02/01/18) INDIVIDUAL PSYCHOTHERAPY, SUPPORTIVE (02/01/18) INJECT/INFUSE NEC (05/08/14) Family History: States: Diabetes - Social History Hx Alcohol Use: No Hx Substance Use: Yes - Immunization History Hx Tetanus Toxoid Vaccination: No Hx Influenza Vaccination: No Hx Pneumococcal Vaccination: No Review Of Systems Except As Marked, All Systems Reviewed And Found Negative. Psych: Positive for: Depression, Suicidal ideation Physical Exam - Physical Exam Appears: Non-toxic, No Acute Distress Skin: Normal Color, Warm, Dry Head: Atraumatic, Normacephalic Eye(s): bilateral: Normal Inspection Oral Mucosa: Moist Neck: Normal ROM, Supple Chest: Symmetrical Cardiovascular: Rhythm Regular Respiratory: Normal Breath Sounds, No Rales, No Rhonchi, No Wheezing Gastrointestinal/Abdominal: Soft, No Tenderness, No Guarding, No Rebound Extremity: Normal ROM, No Tenderness, No Swelling Neurological/Psych: Oriented x3, Normal Speech Gait: Steady ED Course And Treatment - Laboratory Results Result Diagrams: 03/07/18 04:12 03/07/18 04:12 O2 Sat by Pulse Oximetry: 98 (ON RA) Pulse Ox Interpretation: Normal Medical Decision Making Medical Decision Making: Impression: overdose Plan: * Labs * CXR * Ativan 1 mg PO * UA * * * rn discussed with posion control. recoommends tele monitoring and serial ekg. accepted lauar brenner. ekg no qtc prolonation on itial ekg Disposition - Disposition Disposition: HOSPITALIZED Disposition Time: 12:30 Condition: STABLE - Clinical Impression Clinical Impression: Opioid use disorder, severe, dependence, Overdose - Scribe Statement The provider has reviewed the documentation as recorded by the Scribe Berny Warner All medical record entries made by the Scribe were at my direction and personally dictated by me. I have reviewed the chart and agree that the record accurately reflects my personal performance of the history, physical exam, medical decision making, and the department course for this patient. I have also personally directed, reviewed, and agree with the discharge instructions and disposition. Decision To Admit - Pt Status Changed To: Hospital Disposition Of: Inpatient - Admit Certification Admit to Inpatient:: After my assessment, the patient will require hospitalization for at least two midnights. This is because of the severity of symptoms shown, intensity of services needed, and/or the medical risk in this patient being treated as an outpatient. - InPatient: Physician Admission Certification: I certify that this patient requires 2 or more midnights of care for the following reason:: needs cardiac monitoring - . Bed Request Type: Telemetry Admitting Physician: Yasmeen Brenner Patient Diagnosis: Opioid use disorder, severe, dependence, Overdose
[2018-03-07] MEDS ORDERED: DiphenhydrAMINE 50 mg/ml Inj ONE (01:30)
[2018-03-07] MEDS ORDERED: DiphenhydrAMINE 50 mg/ml Inj IVP STA (01:54)
[2018-03-07 04:16] LABS: HEMOGLOBIN 12.2 g/dL (11.0-16.0); MEAN CELL VOLUME 92.5 fL (81.0-99.0); MEAN CORPUSCULAR HEMOGLOBIN 31.1 pg (27.0-31.0); MEAN CORPUSCULAR HGB CONC 33.7 g/dL (33.0-37.0); MEAN PLATELET VOLUME 9.1 fL (7.2-11.7); RBC 3.93 Mil/uL (3.80-5.20); RED CELL DISTRIBUTION WIDTH 13.2 % (11.5-14.5); WHITE BLOOD COUNT 6.6 K/uL (4.8-10.8)
[2018-03-07 05:14] LABS: ALB/GLOB RATIO 1.3 (1.0-2.1); ALBUMIN 3.9 g/dL (3.5-5.0); ALT/SGPT 27 U/L (9-52); AST/SGOT 20 U/L (14-36); BLOOD UREA NITROGEN 10 mg/dL (7-17); CALCIUM 8.5 mg/dl (8.6-10.4); GFR AFRICAN-AMERICAN > 60; GFR NON-AFRICAN AMERICAN > 60
[2018-03-07] MEDS ORDERED: Enoxaparin 40 mg Syringe SC SCH (10:00)
[2018-03-07] MEDS ORDERED: Aluminum Hydroxide/Magnesium Hydroxide Susp (30 mL) PO PRN (10:31)
--- NOTE | 2018-03-07 10:32 | PCM.PSYCH ---
Initial Psychiatric Evaluation - Initial Psychiatric Evaluation Type of Admission: Voluntary Legal Status: Capacity Current Medications: Active Medications Generic Name Dose Route Start Last Admin Trade Name Freq PRN Reason Stop Dose Admin Enoxaparin Sodium 40 mg 03/07/18 10:00 Lovenox SC DAILY CONCEPCION Pantoprazole Sodium 40 mg 03/07/18 10:00 Protonix Ec Tab PO DAILY CONCEPCION Past Psychiatric History - Past Psychiatric History Pertinent Medical Hx (Current Medical&Sleep Prob, Allergies): Allergies Allergy/AdvReac Type Severity Reaction Status Date / Time No Known Allergies Allergy Verified 03/06/18 22:14 No Known Home Med 03/06/18
[2018-03-07] MEDS: Pantoprazole 40 mg EC Tab PO SCH (11:35)
--- NOTE | 2018-03-07 13:59 | PCM.BM ---
<Mariana Amaro - Last Filed: 03/07/18 13:57> Treatment Plan Problems - Problems identified on initial assessmt Potential for opiate withdrawal Date Initiated: 03/07/18 Time Initiated: 13:00 Assessment reference: NA Status: Active Treatment assets and liabiliti Patient Assests: adapts well, cooperative, educated, insightful, self-reliant, ADL independent, negotiates basic needs Patient Liabilities: financial problems, poor support system, relationship conflicts, substance abuse - Milieu Protocol Maintain good personal hygiene: every shift Encourage regular showers, every shift Remind patient to perform daily oral care, every shift Assist patient to perform ADL's Maintain personal safety: every shift Educate patient to report safety concerns to staff, every shift Monitor environment for contraband/sharps Medication safety: Monitor for expected outcome, potential side effects: every shift, Assess barriers to learning: every shift, Assess readiness for medication education: every shift <Halley Witt - Last Filed: 03/07/18 18:59> - Diagnosis (1) Opioid use disorder, severe, dependence Status: Acute Interventions: 03/07/18 18:59 * Assess 7x/week regarding severity of withdrawal * Educate regarding risks, benefits, side effects and alternatives of medications * Use Motivational Interviewing for abstinence * Use CBT for relapse prevention * Medication management for withdrawal symptoms * Encourage medication assisted treatment * <Tonia Dueñas - Last Filed: 03/08/18 08:37> Family Contact Family involvement: No known Family/SO - Goals for Treatment Patient goals for treatment: Complete detox and transition to Suboxone maintenance. Discharge/Continuing Care - Education Needs Education Needs: Patient Medication, Patient Diagnosis/Disease Process, Patient Coping Skills, Patient Anger Management skills, Patient Placement options, Patient Community resources - Discharge Discharge Criteria: Ability to care for self, No longer exhibiting s/s of withdrawal, Reduction of target symptoms Discharge to:: Home - Treatment Team Participation Patient/Family/SO Statement: 03/08/18 08:36 "I need to be on a maintenance medication..." Discussed with Family/SO: No Was Patient/Family/SO present at Treatment Team Meeting: Yes
--- NOTE | 2018-03-07 14:44 | PCM.PSYCH ---
Initial Psychiatric Evaluation - Initial Psychiatric Evaluation Type of Admission: Voluntary Legal Status: Capacity Chief Complaint (in patient's own words): "I need help so bad" History of Present Illness and Precipitating Events: The patient is seen, chart reviewed and case discussed. She is known from a recent admission here. 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 The patient is also from [facility] and came here 15 years ago. She doesn't have a child. The patient is here again for opioid detox; she was sent to [facility] in [facility] but she claims she had ongoing withdrawal sxs and so they discharged her after 4 -5 days and since then she was purchasing subutex from the streets and some seroquel, on which she accidentally overdosed the other day, because "I was not sleeping for 4 nights." She used to use 20 bags intranasally for the past 10 years. She had one detox in the past but never been to rehabilitation or or used MAT until this year She was/is also using crack cocaine but denies alcohol, cannabis and all other drugs. She says she couldn't stop on her own and kept on relapsing on subutex and sometimes heroin. Past psych history: Depression and anxiety. No admissions and no suicide attempts Medical history: Denies. Family psych history: Uncle had substance use and committed suicide when patient was a child Current Medications: Active Medications Generic Name Dose Route Start Last Admin Trade Name Alvaradoq PRN Reason Stop Dose Admin Al Hydrox/Mg Hydrox/Simethicone 30 ml 03/07/18 10:31 Maalox 30 Ml PO TID PRN Indigestion / Heartburn Hydroxyzine HCl 50 mg 03/07/18 12:27 Atarax PO Q6H PRN Anxiety Loperamide HCl 2 mg 03/07/18 10:31 Imodium PO Q8 PRN Diarrhea Ondansetron HCl 4 mg 03/07/18 10:31 Zofran Tab PO Q8 PRN Nausea/Vomiting Pantoprazole Sodium 40 mg 03/07/18 10:00 03/07/18 11:35 Protonix Ec Tab PO 40 mg DAILY CONCEPCION Administration Quetiapine Fumarate 100 mg 03/07/18 22:00 Seroquel PO HS CONCEPCION Past Psychiatric History - Past Psychiatric History Previous Treatment History: None Pertinent Medical Hx (Current Medical&Sleep Prob, Allergies): Allergies Allergy/AdvReac Type Severity Reaction Status Date / Time No Known Allergies Allergy Verified 03/06/18 22:14 No Known Home Med 03/06/18 Review of Systems - Neurological Neurological: UNREMARKABLE - Psychiatric Psychiatric: Abnormal Sleep Pattern, Anxiety, Difficulty Concentrating. absent : Hallucinations, Homicidal Ideation, Hopelessness, Paranoia, Suicidal Ideation Mental Status Examination - Personal Presentation Personal Presentation: Looks stated age - Affect Affect: Constricted - Motor Activity Motor Activity: Calm - Reliability in Providing Information Reliability in Providing Information: Good - Speech Speech: Organized - Mood Mood: Anxious - Formal Thought Process Formal Thought Process: No Impairment - Cognitive Functions Orientation: Person, Place, Situation, Time Sensorium: Alert Attention/Concentration: Attentive Estimate of Intelligence: Average Judgement: Intact, as evidence by: Insight regarding need for hospitalization Memory: Recent intact, as evidence by: Ability to recall events of the day, Remote intact, as evidenced by: Abilit to recall sig. life events - Risk Risk: Withdrawal, Diminished functioning - Strength & Assets Inventory Strength & Assets Inventory: Cooperative - Limitations Limitations: Living alone DSM 5 DX - DSM 5 DSM 5 Diagnosis: Opioid withdrawal Opioid use disorder, severe Cocaine use disorder, severe Generalized anxiety disorder - Recommended/Plan of Treatment Treatment Recommendations and Plan of Treatment: Taper with subutex Gabapentin for augmentation Ativan if needed She doesn't want Lexapro for REZA this time CBT and supportive therapy for REZA and depression As needed medications All risks, benefits and alternatives of the meds discussed, and the pt agreed and understood. Attend groups and activities Supportive therapy and psychoeducation for substance use [place] for abstinence CBT for relapse prevention Encourage MAT Refer to rehab or IOP, and self-help groups 34 min Projected ELOS: 4-5 days Prognosis: good - Smoking Cessation Smoking Cessation Initiated: Yes
[2018-03-07] MEDS ORDERED: Buprenorphine Hydrochloride 2 mg SL ONE (18:00)
--- NOTE | 2018-03-07 19:45 | CARD ---
APPROVED REPORT EKG Measurement Heart [id number] <Conclusion> Normal sinus rhythm Normal ECG
--- NOTE | 2018-03-07 21:23 | CARD ---
APPROVED REPORT EKG Measurement Heart [id number] <Conclusion> Sinus rhythm with short ND Possible Left atrial enlargement Borderline ECG
[2018-03-08] MEDS: Pantoprazole 40 mg EC Tab PO SCH (09:44)
[2018-03-08] MEDS ORDERED: Buprenorphine Hydrochloride 2 mg SL ONE ×2 (10:00→11:00)
[2018-03-08 14:05] VITALS: RESP 18
[2018-03-08] MEDS: Buprenorphine Hydrochloride 2 mg SL SCH (17:16)
[2018-03-09] MEDS: Pantoprazole 40 mg EC Tab PO SCH (09:08)
[2018-03-09] MEDS: Buprenorphine Hydrochloride 2 mg SL SCH (09:08)
--- NOTE | 2018-03-09 16:14 | PCM.PYCHPN ---
Psychiatric Progress Note - Psychiatric Progress Note Patient seen today, length of contact: 16 min Patient Chief Complaint: "I'm a little better" Problems Identified/Issues Discussed: The pt is seen, chart reviewed, case discussed with staff. Support given, CBT and MN used briefly No new symptoms reported, improving slowly and needs more time She reports she has high risk of relapse w/o inpatient detox and good referral No SEs from medications, risks discussed. She wants to use as little subutex as possible - risks discussed After care discussed Medication Change: Yes (detox changes daily) Medical Record Reviewed: Yes Mental Status Examination - Cognitive Function Orientation: Person, Place, Situation, Time Memory: Intact Attention: WNL Concentration: Poor Association: WNL Fund of Knowledge: WNL - Mood Mood: Anxious - Affect Affect: Constricted - Speech Speech: Appropriate - Formal Thought Process Formal Thought Process: No Impairment - Suicidal Ideation Suicidal Ideation: No - Homicidal Ideation Homicidal Ideation: No Goal/Treatment Plan - Goal/Treatment Plan Need for Continued Stay: Discharge may exacerbated symptoms, Severe functional impairment Progress Toward Problem(s) and Goals/Treatment Plan: Taper with subutex Gabapentin for augmentation Ativan if needed She doesn't want Lexapro for REZA this time CBT and supportive therapy for REZA and depression As needed medications All risks, benefits and alternatives of the meds discussed, and the pt agreed and understood. Attend groups and activities Supportive therapy and psychoeducation for substance use MN for abstinence CBT for relapse prevention Encourage MAT Refer to rehab or IOP, and self-help groups
[2018-03-10] MEDS: Pantoprazole 40 mg EC Tab PO SCH (09:11)
[2018-03-10 09:30] VITALS: BP 117/83; PULSE 76; TEMP 98.1; O2SAT 99
[2018-03-10] MEDS ORDERED: Buprenorphine Hydrochloride 2 mg SL ONE (10:00)
--- NOTE | 2018-03-11 00:27 | PCM.PYCHPN ---
Psychiatric Progress Note - Psychiatric Progress Note Patient seen today, length of contact: 16 min Patient Chief Complaint: "I'm anxious" Problems Identified/Issues Discussed: The pt is seen, chart reviewed, case discussed with staff. The pt is compliant with medications and reports no side-effects. Will take 2 mg today and 1 mg tomorrow - she reports significant wdw sxs otherwise Symptoms are improving but needs more time to stabilize. After care discussed, support and psychoeducation given. Medication Change: Yes (detox changes daily) Medical Record Reviewed: Yes Mental Status Examination - Cognitive Function Orientation: Person, Place, Situation, Time Memory: Intact Attention: WNL Concentration: Poor Association: WNL Fund of Knowledge: WNL - Mood Mood: Anxious - Affect Affect: Constricted - Speech Speech: Appropriate - Formal Thought Process Formal Thought Process: No Impairment - Suicidal Ideation Suicidal Ideation: No - Homicidal Ideation Homicidal Ideation: No Goal/Treatment Plan - Goal/Treatment Plan Need for Continued Stay: Discharge may exacerbated symptoms, Severe functional impairment Progress Toward Problem(s) and Goals/Treatment Plan: Taper with subutex - dose adjusted daily Gabapentin for augmentation Ativan if needed Lexapro low dose started b/c of anxiety disorder She doesn't want Lexapro for REZA this time CBT and supportive therapy for REZA and depression As needed medications All risks, benefits and alternatives of the meds discussed, and the pt agreed and understood. Attend groups and activities Supportive therapy and psychoeducation for substance use [place] for abstinence CBT for relapse prevention Encourage MAT Refer to rehab or IOP, and self-help groups Estimated Date of D/C: 03/10/18
--- NOTE | 2018-03-11 00:30 | PCM.PYCHDC ---
Mental Status Examination - Mental Status Examination Orientation: Person, Place, Situation, Time Memory: Intact Mood: Anxious Affect: Constricted Speech: Appropriate Attention: WNL Concentration: Poor Association: WNL Fund of Knowledge: WNL Formal Thought Process: No Impairment Suicidal Ideation: No Current Homicidal Ideation?: No Discharge Summary - Discharge Note Reason for Hospitalization: opioid detox Psychiatric History (includes Medical, Family, Personal Hx): Depression, suicide attempt Consultations:: List each consultation separately and include: 1. Reason for request. 2. Findings. 3. Follow-up Summary of Hospital Course include:: 1. Description of specific treatment plan utilized for patients during their course of treatmen. 2. Summarize the time- course for resolution of acute symptoms and/or regressed behaviors. 3. Describe issues identified and worked on during hospitalization. 4. Describe medication utilized. 5. Describe medical problems identified and treated. 6. Reassessment of suicide risk Summary of Hospital Course: The patient is seen, chart reviewed and case discussed. On admission: She is known from a recent admission here. This is a 42-year-old female, homeless but now staying with a friend or two, and works in a [employer] and a "[email or web address] business." She is but for 5 years, however she was living with her ex- up until December when he left for [facility]. The patient is also from [facility] and came here 15 years ago. She doesn't have a child. The patient is here again for opioid detox; she was sent to [facility] in [facility] but she claims she had ongoing withdrawal sxs and so they discharged her after 4 -5 days and since then she was purchasing subutex from the streets and some seroquel, on which she accidentally overdosed the other day, because "I was not sleeping for 4 nights." She used to use 20 bags intranasally for the past 10 years. She had one detox in the past but never been to rehabilitation or or used MAT until this year She was/is also using crack cocaine but denies alcohol, cannabis and all other drugs. She says she couldn't stop on her own and kept on relapsing on subutex and sometimes heroin. Past psych history: Depression and anxiety. No admissions and no suicide attempts Medical history: Denies. Family psych history: Uncle had substance use and committed suicide when patient was a child Hospital course: The pt was admitted and started on treatment with psychotherapy, support, psychoeducation and medications. IL and CBT used. The pt attended groups and activities, as well as milieu therapy. All the risks and benefits of medications are discussed and the patient understood and agreed. The pt improved with the treatments provided. After care discussed with the patient. She will go to [facility] for suboxone treatment - Final Diagnosis (DSM 5) Condition upon Discharge: STABLE DSM 5: Opioid withdrawal Opioid use disorder, severe Cocaine use disorder, severe Generalized anxiety disorder Disposition: HOME/ ROUTINE Follow-up Treatment Plan: Continue below medications after discharge. Follow after care plan as discussed. Use relapse prevention skills Return to ER or call 911 if suicidal, homicidal or symptoms relapse. Stay away from stress, alcohol and drugs. See primary doctor regularly and get labs. Prescriptions/Medication Reconciliation: Escitalopram [Lexapro] 5 mg PO DAILY #30 tab Gabapentin [Neurontin] 300 mg PO TID #90 cap Pantoprazole [Protonix EC Tab] 40 mg PO DAILY #30 ect QUEtiapine [Seroquel] 100 mg PO HS #30 tab - Smoking Cessation Smoking Cessation Medication prescribed: No
== END 2018-03-10 11:00 | disposition home or self-care (01) | DRG 426 ==
LOC: C.ER 22:03 → C.9E 23:30 → C.7D 03-07 12:35
PROVIDERS: ADMIT Psychiatry & Neurology Psychiatry; ATTEND Psychiatry & Neurology Psychiatry
DX: F32.9 Major depressive disorder, single episode, unspecified (principal); F11.23 Opioid dependence with withdrawal; F14.10 Cocaine abuse, uncomplicated; E11.9 Type 2 diabetes mellitus without complications; F41.1 Generalized anxiety disorder; Z59.0 Homelessness; Z79.4 Long term (current) use of insulin

== ENCOUNTER 2018-04-05 10:46 | Emergency (ER) | payer MEDICAID ==
[2018-04-05 10:54] VITALS: BMI 16.6
[2018-04-05 10:57] VITALS: TEMP 98.3; O2SAT 99
[2018-04-05] MEDS ORDERED: Sodium Chloride 0.9% 1,000 ML IV ONE (11:29)
[2018-04-05 11:51] LABS: BASO # 0.1 K/uL (0.0-0.2); BASO % 1.1 % (0.0-2.0); EOS # 0.1 K/uL (0.0-0.7); EOS % 1.6 % (0.0-4.0); HEMOGLOBIN 12.6 g/dL (11.0-16.0); LYMPH # 1.8 K/uL (1.0-4.3); LYMPH % 32.9 % (20.0-40.0); MEAN CELL VOLUME 93.1 fL (81.0-99.0); MEAN CORPUSCULAR HEMOGLOBIN 31.9 pg (27.0-31.0); MEAN CORPUSCULAR HGB CONC 34.3 g/dL (33.0-37.0); MONO # 0.5 K/uL (0.0-0.8); MONO % 9.6 % (0.0-10.0); NEUT # 2.9 K/uL (1.8-7.0); NEUT % 54.8 % (50.0-75.0); RBC 3.96 Mil/uL (3.80-5.20); RED CELL DISTRIBUTION WIDTH 12.9 % (11.5-14.5); WHITE BLOOD COUNT 5.3 K/uL (4.8-10.8)
[2018-04-05] MEDS ORDERED: Sodium Chloride 0.9% 1,000 ML ONE (11:51)
[2018-04-05 12:01] LABS: HCG,QUALITATIVE URINE NEGATIVE (NEGATIVE)
[2018-04-05 12:08] LABS: SQUAMOUS EPITHIAL 12 /hpf (0-5); URINE BACTERIA RARE (<OCC); URINE BILIRUBIN NEGATIVE (NEGATIVE); URINE BLOOD NEGATIVE (NEGATIVE); URINE CLARITY Hazy (Clear); URINE COLOR Amber (YELLOW); URINE GLUCOSE (UA) NORMAL (Normal); URINE LEUKOCYTE ESTERASE TRACE Leu/uL (Negative); URINE PROTEIN NEGATIVE (NEGATIVE); URINE UROBILINOGEN NORMAL mg/dL (0.2-1.0)
[2018-04-05 12:23] LABS: ALB/GLOB RATIO 1.2 (1.0-2.1); ALBUMIN 3.9 g/dL (3.5-5.0); ALT/SGPT 23 U/L (9-52); AST/SGOT 22 U/L (14-36); BLOOD UREA NITROGEN 12 mg/dL (7-17); CALCIUM 9.2 mg/dl (8.6-10.4); GFR AFRICAN-AMERICAN > 60; GFR NON-AFRICAN AMERICAN > 60
--- NOTE | 2018-04-05 12:37 | C.PDOC ---
History Of Present Illness 42 year old female presents to the ED for evaluation after she reportedly had a syncopal episode yesterday. Patient states she is s/p 64 days of heroin detox. Patient reports experiencing shortness of breath with exertion ( usually with walking around 5 blocks), fatigue and weakness for the past week. After getting out of the pool yesterday, patient went to lay down on her towel and had a syncopal episode for a few seconds. Patient denies chest pain or trauma/ injury. denies depressioin. ah, si and hi. Time Seen by Provider: 04/05/18 11:15 Chief Complaint (Nursing): Syncope History Per: Patient History/Exam Limitations: no limitations Onset/Duration Of Symptoms: Days Current Symptoms Are (Timing): Still Present Number Of Syncopal Episodes: 1 Activity At Onset Of Symptoms: Lying Associated Symptoms Preceding Syncopal Episode: No Predromal Symptoms (Sudden Onset) Fall Associated With With Symptoms: No Additional History Per: Patient Past Medical History Reviewed: Historical Data, Nursing Documentation, Vital Signs Vital Signs: Last Vital Signs Temp 98.3 F 04/05/18 10:54 Pulse 78 04/05/18 15:33 Resp 16 04/05/18 15:33 BP 103/76 04/05/18 15:33 Pulse Ox 99 04/05/18 13:27 - Medical History PMH: Anxiety, Depression Denies: Diabetes, Hepatitis, HIV, HTN, End Stage Renal Disease, Chronic Kidney Disease, Seizures, Sexually Transmitted Disease Surgical History: No Surg Hx - [facility] DETOXIFICATION SERVICES FOR SUBSTANCE ABUSE TREATMENT (02/01/18) GROUP TELEMETRY RN FOR SUBSTANCE ABUSE TREATMENT, PSYCHOEDUCATION (02/01/18) GROUP TELEMETRY RN FOR SUBSTANCE ABUSE, COGNITIVE BEHAVIORAL (02/01/18) GROUP PSYCHOTHERAPY (02/01/18) INDIV PSYCHOTHERAPY FOR SUBSTANCE ABUSE TREATMENT, SUPPORT (02/01/18) INDIV PSYCHOTHERAPY FOR SUBSTANCE ABUSE, COGNITIV BEHAVIORAL (02/01/18) INDIV PSYCHOTHERAPY FOR SUBSTANCE ABUSE, PSYCHOEDUCATION (02/01/18) INDIVIDUAL PSYCHOTHERAPY, COGNITIVE-BEHAVIORAL (02/01/18) INDIVIDUAL PSYCHOTHERAPY, SUPPORTIVE (02/01/18) INJECT/INFUSE NEC (05/08/14) Family History: States: Diabetes - Social History Hx Alcohol Use: No Hx Substance Use: Yes (stopped) - Immunization History Hx Tetanus Toxoid Vaccination: No Hx Influenza Vaccination: No Hx Pneumococcal Vaccination: No Review Of Systems Constitutional: Positive for: Weakness, Other (fatigue ) Cardiovascular: Negative for: Chest Pain Respiratory: Positive for: Shortness of Breath Neurological: Positive for: Other (syncopal episode ) Physical Exam - Physical Exam Appears: Non-toxic, No Acute Distress, Other (thin female ) Skin: Normal Color, Warm, Dry Head: Atraumatic, Normacephalic Eye(s): bilateral: Normal Inspection, PERRL, EOMI, Other (negative conjunctival pallor ) Oral Mucosa: Moist Neck: Supple Chest: Symmetrical, No Deformity, No Tenderness Cardiovascular: Rhythm Regular, No Murmur Respiratory: Normal Breath Sounds, No Rales, No Rhonchi, No Wheezing Extremity: Normal ROM, Capillary Refill (less than 2 seconds ) Neurological/Psych: Oriented x3, Normal Speech, Normal Cognition ED Course And Treatment - Laboratory Results Result Diagrams: 04/05/18 11:48 04/05/18 11:48 ECG: Interpreted By Me, Viewed By Me ECG Rhythm: Sinus Rhythm Rate From EC O2 Sat by Pulse Oximetry: 99 (on RA) Pulse Ox Interpretation: Normal - Other Rad CXR X-Ray: Interpreted by Me, Viewed By Me, Read By Radiologist Interpretation: HISTORY: sob with exertion. COMPARISON: Chest radiographs 03/2018. TECHNIQUE: Chest PA and lateral. FINDINGS: LUNGS: No active pulmonary disease. PLEURA: No significant pleural effusion identified. No pneumothorax apparent. CARDIOVASCULAR: Normal. OSSEOUS STRUCTURES: No significant abnormalities. VISUALIZED UPPER ABDOMEN: Normal. OTHER FINDINGS: None. IMPRESSION: No interval acute cardiopulmonary disease appreciated. Medical Decision Making Medical Decision Making: Progress: Bloodwork, urinalysis, CXR, EKG ordered and reviewed. IV fluids given. pt with fatigue, sob with exertion., syncope yesterday. normal labs pending ddimer and trop. will admit to tele for observation, discussed with Dr Josee Gale. Disposition Discussed With : Yasmeen Gale - Disposition Disposition: AGAINST MEDICAL ADVICE Disposition Time: 12:57 Condition: GOOD Forms: [facility] (Azerbaijani) - Clinical Impression Clinical Impression: Syncope - PA / SPECIALIST FIELD ENGINEER / Resident Statement MD/DO has reviewed & agrees with the documentation as recorded. - Scribe Statement The provider has reviewed the documentation as recorded by the Scribe (Cyndie Gale) All medical record entries made by the Scribe were at my direction and personally dictated by me. I have reviewed the chart and agree that the record accurately reflects my personal performance of the history, physical exam, medical decision making, and the department course for this patient. I have also personally directed, reviewed, and agree with the discharge instructions and disposition.
--- NOTE | 2018-04-05 13:24 | RAD ---
Date of service: 04/05/2018 HISTORY: sob with exertion COMPARISON: Chest radiographs 03/06/2018. TECHNIQUE: Chest PA and lateral FINDINGS: LUNGS: No active pulmonary disease. PLEURA: No significant pleural effusion identified. No pneumothorax apparent. CARDIOVASCULAR: Normal. OSSEOUS STRUCTURES: No significant abnormalities. VISUALIZED UPPER ABDOMEN: Normal. OTHER FINDINGS: None. IMPRESSION: No interval acute cardiopulmonary disease appreciated.
[2018-04-05 13:32] VITALS: RESP 16
--- NOTE | 2018-04-05 15:13 | CARD ---
APPROVED REPORT Date of service: 04/05/2018 EKG Measurement Heart [id number] <Conclusion> Sinus rhythm with short LA Possible Left atrial enlargement Borderline ECG
[2018-04-05 15:35] VITALS: BP 103/76; PULSE 78
== END 2018-04-05 15:33 | disposition left against medical advice (07) ==
LOC: C.ER 10:46 → C.9E 12:56 → UNDOADMOB 12:56
DX: R55 Syncope and collapse (principal)
CPT/HCPCS: 71046; 80053; 81001; 84484; 84703; 85025; 85378; 93005; 99285; J7030